=== PATIENT | female | born 1950 | race African-American/Black ===

== ENCOUNTER 2018-09-27 01:09 | Inpatient (IN) | payer MEDICARE, MEDICAID ==
[~2018-09-27] VITALS: Ht 160 cm; Wt 47.6 kg
[~2018-09-27 01:09] MED LIST: GABA600T PO
[2018-09-27] MEDS ORDERED: SODIUM CHLORIDE 0.9% 1,000 ML IV ONE (01:50)
[2018-09-27] MEDS ORDERED: HYDROCODONE/ACETAMINOPHEN 5/325MG TABLET PO STA (01:50)
[2018-09-27 03:01] LABS: BASOPHILS % 0.7 % (0.0-2.0); EOSINOPHILS % 1.5 % (0.0-5.0); HEMATOCRIT. 33.3 % (36.0-48.0); HEMOGLOBIN. 10.7 g/dL (12.0-16.0); MEAN CORPUSCULAR HEMOGLOBIN 26.8 pg (28.0-32.0); MEAN CORPUSCULAR VOLUME 83.1 fL (81.0-99.0); MEAN PLATELET VOLUME 7.8 fl (7.4-10.4); MONOCYTES % 6.6 % (2.0-8.0); NEUTROPHILS % 73.2 % (40.0-76.0); PLATELET 235 x1000/uL (130-400); RED BLOOD CELL COUNT 4.01 mill/uL (4.2-5.4); RED CELL DISTRIBUTION WIDTH 19.2 % (11.6-14.6)
[2018-09-27 03:02] LABS: CLARITY URINE CLOUDY (CLEAR); COLOR URINE YELLOW (YELLOW); KETONES URINE NEGATIVE (NEGATIVE); LEUKOCYTE ESTERASE URINE NEGATIVE (NEGATIVE); NITRITE URINE NEGATIVE (NEGATIVE); OCCULT BLOOD URINE NEGATIVE (NEGATIVE); PROTEIN URINE NEGATIVE (NEGATIVE); SPECIFIC GRAVITY URINE 1.022 (1.005-1.030)
[2018-09-27 03:04] LABS: CHLORIDE 105 mEq/L (98-107)
[2018-09-27 03:13] LABS: ETHANOL BLOOD < 10 mg/dL
[2018-09-27 03:16] LABS: *AMPHETAMINES SCREEN URINE NEGATIVE (NEGATIVE); *BARBITURATES SCREEN URINE NEGATIVE (NEGATIVE); *BENZODIAZEPINES SCREEN URINE NEGATIVE (NEGATIVE); *COCAINE SCREEN URINE PRESUMTIVE POSITIVE (NEGATIVE); METHADONE URINE SCREEN NEGATIVE (NEGATIVE)
[2018-09-27 03:17] LABS: CANNABINOID URINE SCREEN NEGATIVE (NEGATIVE); OPIATES URINE SCREEN NEGATIVE (NEGATIVE); PHENCYCLIDINE URINE SCREEN NEGATIVE (NEGATIVE)
[2018-09-27] MEDS ORDERED: MORPHINE SULFATE 2 MG/ML CPJ (NOT FOR IM USE) IV ONE (05:00)
[2018-09-27] MEDS ORDERED: CLONIDINE 0.1MG TABLET PO PRN (08:45)
[2018-09-27] MEDS ORDERED: IPRATROPIUM/ALBUTEROL 0.5-3(2.5)MG/3ML NEB INH PRN (08:45)
[2018-09-27] MEDS ORDERED: NITROGLYCERIN 0.4MG TABLET SL SL PRN (08:45)
[2018-09-27] MEDS ORDERED: ACETAMINOPHEN 325MG TABLET PO PRN (08:45)
[2018-09-27] MEDS ORDERED: GUAIFENESIN 200MG/10ML SUGAR FREE UDC PO PRN (08:45)
[2018-09-27] MEDS ORDERED: LORAZEPAM 0.5MG TABLET PO PRN (08:45)
[2018-09-27] MEDS ORDERED: KETOROLAC 15MG/ML VIAL IV PRN (08:45)
[2018-09-27] MEDS ORDERED: NA PHOS,M-B/NA PHOS,DI-BA ENEMA 118ML PR PRN (08:45)
[2018-09-27] MEDS ORDERED: MAGNESIUM/ALUMINUM HYDROXIDE/SIMETHICONE 30ML UDC PO PRN (08:45)
[2018-09-27] MEDS ORDERED: ONDANSETRON HCL 4MG/2ML INJ IV PRN (08:45)
[2018-09-27] MEDS: ASPIRIN 325MG EC TABLET PO SCH (10:55)
[2018-09-27] MEDS: AMLODIPINE 10MG TABLET PO SCH (10:55)
[2018-09-27] MEDS: LISINOPRIL 20MG TABLET PO SCH ×2 (10:56→22:03)
[2018-09-27 13:00] VITALS: BP 136/89
[2018-09-27] MEDS ORDERED: GABA-290 PO (13:31)
[2018-09-27] MEDS ORDERED: HYDR-4009 MT (13:32)
[2018-09-27] MEDS: TRAMADOL 50MG TABLET PO PRN ×2 (15:09→22:04)
[2018-09-27] MEDS: DOCUSATE SODIUM 100MG CAPSULE PO PRN (15:09)
[2018-09-27] MEDS: ENOXAPARIN 30MG/0.3ML SYR SUBCUT SCH (15:09)
[2018-09-27] MEDS: FAMOTIDINE 20MG TABLET PO SCH (15:10)
[2018-09-27 16:00] VITALS: BP 104/63
[2018-09-27 20:00] VITALS: BP 119/58
[2018-09-27 20:58] LABS: CREATINE KINASE MB FRACTION 1.6 ng/mL (0.5-3.6)
[2018-09-27] MEDS ORDERED: ZOLPIDEM TARTRATE 5MG TABLET PO PRN (21:00)
[2018-09-27] MEDS: GABAPENTIN 300MG CAPSULE PO SCH (22:03)
[2018-09-28] VITALS: BP 122/75
[2018-09-28 03:21] LABS: CREATINE KINASE MB FRACTION 1.4 ng/mL (0.5-3.6)
[2018-09-28 04:00] VITALS: BP 125/76
[2018-09-28 08:15] VITALS: BP 143/74
[2018-09-28] MEDS: LISINOPRIL 20MG TABLET PO SCH ×2 (09:00→21:46)
[2018-09-28] MEDS: AMLODIPINE 10MG TABLET PO SCH (09:00)
[2018-09-28] MEDS: ASPIRIN 325MG EC TABLET PO SCH (09:59)
[2018-09-28] MEDS: GABAPENTIN 300MG CAPSULE PO SCH ×2 (10:00→18:23)
[2018-09-28] MEDS: FAMOTIDINE 20MG TABLET PO SCH (10:07)
[2018-09-28] MEDS: TRAMADOL 50MG TABLET PO PRN (10:08)
[2018-09-28 12:10] VITALS: BP 136/70
[2018-09-28 16:15] VITALS: BP 112/60
[2018-09-28] MEDS: ENOXAPARIN 30MG/0.3ML SYR SUBCUT SCH (18:23)
[2018-09-28 20:00] VITALS: BP 112/65
[2018-09-29] VITALS: BP 115/68
[2018-09-29 04:00] VITALS: BP 118/63
[2018-09-29 08:00] VITALS: BP 140/73
[2018-09-29] MEDS: ASPIRIN 325MG EC TABLET PO SCH (10:27)
[2018-09-29] MEDS: FAMOTIDINE 20MG TABLET PO SCH (10:27)
[2018-09-29] MEDS: AMLODIPINE 10MG TABLET PO SCH (10:27)
[2018-09-29] MEDS: DOCUSATE SODIUM 100MG CAPSULE PO PRN (10:28)
[2018-09-29] MEDS: GABAPENTIN 300MG CAPSULE PO SCH ×2 (10:42→17:50)
[2018-09-29] MEDS: LISINOPRIL 20MG TABLET PO SCH ×2 (10:43→21:20)
[2018-09-29 12:00] VITALS: BP 123/58
[2018-09-29] MEDS: ENOXAPARIN 30MG/0.3ML SYR SUBCUT SCH (15:12)
[2018-09-29 16:00] VITALS: BP 116/54
[2018-09-29 20:00] VITALS: BP 123/63
[2018-09-29] MEDS: TRAMADOL 50MG TABLET PO PRN (21:24)
[2018-09-29 22:43] LABS: FOLIC ACID (FOLATE) SERUM 12.3 ng/mL (>5.38)
[2018-09-30] MEDS: TRAMADOL 50MG TABLET PO PRN ×2 (04:34→20:44)
[2018-09-30 08:00] VITALS: BP 156/68
[2018-09-30] MEDS: FAMOTIDINE 20MG TABLET PO SCH (09:00)
[2018-09-30] MEDS: AMLODIPINE 10MG TABLET PO SCH (09:00)
[2018-09-30] MEDS: LISINOPRIL 20MG TABLET PO SCH ×2 (09:00→20:44)
[2018-09-30] MEDS: ASPIRIN 325MG EC TABLET PO SCH (09:00)
[2018-09-30] MEDS: GABAPENTIN 300MG CAPSULE PO SCH ×2 (09:10→19:03)
[2018-09-30 12:00] VITALS: BP 153/61
[2018-09-30] MEDS: ENOXAPARIN 30MG/0.3ML SYR SUBCUT SCH (14:55)
[2018-09-30] MEDS: ACETAMINOPHEN WITH CODEINE 300/30MG TABLET PO PRN ×2 (15:20→23:39)
[2018-09-30 16:00] VITALS: BP 148/71
[2018-09-30 20:00] VITALS: BP 132/63
[2018-10-01] VITALS (7 sets, daily range): BP systolic 120–158; BP diastolic 53–80
[2018-10-01] MEDS: ACETAMINOPHEN WITH CODEINE 300/30MG TABLET PO PRN ×2 (08:11→19:17)
[2018-10-01] MEDS: GABAPENTIN 300MG CAPSULE PO SCH ×2 (08:11→19:16)
[2018-10-01] MEDS: LISINOPRIL 20MG TABLET PO SCH (08:13)
[2018-10-01] MEDS: ASPIRIN 325MG EC TABLET PO SCH (08:13)
[2018-10-01] MEDS: FAMOTIDINE 20MG TABLET PO SCH (08:13)
[2018-10-01] MEDS: AMLODIPINE 10MG TABLET PO SCH (08:13)
[2018-10-01] MEDS: ENOXAPARIN 30MG/0.3ML SYR SUBCUT SCH (15:00)
== END 2018-10-01 20:00 | DRG 312 ==
LOC: ER 01:09 → 7WST 05:34 → EDBEDREQ 05:37 → EDBEDREQTM 05:37 → SUPCPDRO 08:43 → ENRESERV 12:20
PROVIDERS: ADMIT Internal Medicine; ATTEND Internal Medicine
DX: R55 Syncope and collapse (principal); E44.0 Moderate protein-calorie malnutrition; Z68.1 Body mass index [BMI] 19.9 or less, adult; K29.70 Gastritis, unspecified, without bleeding; D63.8 Anemia in other chronic diseases classified elsewhere; E11.9 Type 2 diabetes mellitus without complications; F14.10 Cocaine abuse, uncomplicated; F17.210 Nicotine dependence, cigarettes, uncomplicated; I10 Essential (primary) hypertension; M54.9 Dorsalgia, unspecified; M54.2 Cervicalgia; Z79.1 Long term (current) use of non-steroidal anti-inflammatories (NSAID); Z79.899 Other long term (current) drug therapy
CPT/HCPCS: 36415; 71045; 72131; 80061; 80305; 82550; 82553; 82607; 82746; 83036; 83605; 83880; 84484; 93005; 93306; 93970; 96361; 96374; 99285; G0482; J1650; J1885; J2270; J7030

== ENCOUNTER 2019-03-10 15:13 | Inpatient (IN) | payer MEDICARE, MEDICAID ==
[~2019-03-10] VITALS: Ht 160 cm; Wt 56.7 kg
[~2019-03-10 15:13] MED LIST changes: +GABA-290 PO; -GABA600T PO; +HYDR-4009 MT
[2019-03-10] MEDS ORDERED: MORPHINE SULFATE 4 MG/ML CPJ (NOT FOR IM USE) IV STA (16:19)
[2019-03-10] MEDS ORDERED: ONDANSETRON HCL 4MG/2ML INJ IV STA (16:19)
[2019-03-10] MEDS ORDERED: SODIUM CHLORIDE 0.9% 1,000 ML IV ONE (16:19)
[2019-03-10] MEDS ORDERED: HYDROCODONE/ACETAMINOPHEN 5/325MG TABLET PO ONE (17:15)
[2019-03-10 17:19] LABS: BASOPHILS % 0.2 % (0.0-2.0); EOSINOPHILS % 0.3 % (0.0-5.0); HEMATOCRIT. 40.6 % (36.0-48.0); HEMOGLOBIN. 13.3 g/dL (12.0-16.0); LYMPHOCYTES % 14.4 % (20.0-50.0); MEAN CORPUSCULAR HEMOGLOBIN 30.2 pg (28.0-32.0); MEAN CORPUSCULAR VOLUME 92.8 fL (81.0-99.0); MEAN PLATELET VOLUME 7.6 fl (7.4-10.4); MONOCYTES % 9.7 % (2.0-8.0); NEUTROPHILS % 75.4 % (40.0-76.0); PLATELET 380 x1000/uL (130-400); RED BLOOD CELL COUNT 4.38 mill/uL (4.2-5.4); RED CELL DISTRIBUTION WIDTH 15.8 % (11.6-14.6)
[2019-03-10 17:21] LABS: CHLORIDE 98 mEq/L (98-107)
[2019-03-10 17:25] LABS: ETHANOL BLOOD < 10 mg/dL
[2019-03-10] MEDS ORDERED: POTASSIUM CHLORIDE 20MEQ TABLET SR PO ONE (17:30)
[2019-03-10] MEDS ORDERED: LORAZEPAM 0.5MG TABLET PO PRN (18:00)
[2019-03-10] MEDS ORDERED: ACETAMINOPHEN 325MG TABLET PO PRN (18:00)
[2019-03-10] MEDS ORDERED: TRAMADOL 50MG TABLET PO PRN (18:00)
[2019-03-10] MEDS ORDERED: LEVOFLOXACIN 500MG PREMIX 100 ML IV SCH (18:00)
[2019-03-10] MEDS ORDERED: NA PHOS,M-B/NA PHOS,DI-BA ENEMA 118ML PR PRN (18:00)
[2019-03-10] MEDS ORDERED: DOCUSATE SODIUM 100MG CAPSULE PO PRN (18:00)
[2019-03-10] MEDS ORDERED: NITROGLYCERIN 0.4MG TABLET SL SL PRN (18:00)
[2019-03-10] MEDS ORDERED: CLONIDINE 0.1MG TABLET PO PRN (18:00)
[2019-03-10] MEDS ORDERED: ONDANSETRON HCL 4MG/2ML INJ IV PRN (18:00)
[2019-03-10] MEDS ORDERED: GUAIFENESIN 200MG/10ML SUGAR FREE UDC PO PRN (18:00)
[2019-03-10] MEDS ORDERED: ZOLPIDEM TARTRATE 5MG TABLET PO PRN (18:00)
[2019-03-10] MEDS ORDERED: MAGNESIUM/ALUMINUM HYDROXIDE/SIMETHICONE 30ML UDC PO PRN (18:00)
[2019-03-10] MEDS ORDERED: IPRATROPIUM/ALBUTEROL 0.5-3(2.5)MG/3ML NEB INH PRN (18:00)
[2019-03-10 22:00] VITALS: BP 141/78
[2019-03-11] VITALS (7 sets, daily range): BP systolic 108–157; BP diastolic 45–76
[2019-03-11] MEDS ORDERED: POTASSIUM CHLORIDE 20MEQ TABLET SR PO NR
[2019-03-11] MEDS ORDERED: LEVOFLOXACIN 500MG PREMIX 100 ML IV NR
[2019-03-11] MEDS: DILTIAZEM HCL 30MG TABLET PO SCH ×4 (00:32→17:13)
[2019-03-11] MEDS: KETOROLAC 15MG/ML VIAL IV PRN ×2 (00:40→13:27)
[2019-03-11] MEDS: GABAPENTIN 300MG CAPSULE PO SCH ×3 (06:39→21:04)
[2019-03-11] MEDS: ENOXAPARIN 40MG/0.4ML SYR SUBCUT SCH (08:10)
[2019-03-11] MEDS: FAMOTIDINE 20MG TABLET PO SCH (08:10)
[2019-03-11] MEDS: GUAIFENESIN/DM 600MG/30MG ER TAB 12HR PO SCH ×2 (08:10→20:58)
[2019-03-11] MEDS ORDERED: DEXTROSE 50% WATER 50ML SYRINGE IV PRN (13:00)
[2019-03-11] MEDS: BLOOD SUGAR DIAGNOSTIC STRIP TEST SCH ×2 (16:53→20:57)
[2019-03-11 17:01] LABS: CLARITY URINE CLEAR (CLEAR); COLOR URINE YELLOW (YELLOW); KETONES URINE TRACE (NEGATIVE); LEUKOCYTE ESTERASE URINE NEGATIVE (NEGATIVE); NITRITE URINE NEGATIVE (NEGATIVE); OCCULT BLOOD URINE NEGATIVE (NEGATIVE); PROTEIN URINE NEGATIVE (NEGATIVE); SPECIFIC GRAVITY URINE 1.024 (1.005-1.030)
[2019-03-11] MEDS: INSULIN LISPRO 100 UNITS/ML SUBCUT SCH ×2 (17:07→21:00)
[2019-03-11] MEDS: LEVOFLOXACIN 250MG PREMIX 50 ML IV SCH (23:06)
[2019-03-12] VITALS: BP 122/62
[2019-03-12] MEDS: IPRATROPIUM/ALBUTEROL 0.5-3(2.5)MG/3ML NEB HHN SCH ×6 (00:17→20:00)
[2019-03-12] MEDS: DILTIAZEM HCL 30MG TABLET PO SCH ×5 (00:29→23:55)
[2019-03-12 04:00] VITALS: BP 118/59
[2019-03-12] MEDS: KETOROLAC 15MG/ML VIAL IV PRN ×3 (05:42→20:04)
[2019-03-12] MEDS: GABAPENTIN 300MG CAPSULE PO SCH ×3 (06:08→23:54)
[2019-03-12] MEDS: BLOOD SUGAR DIAGNOSTIC STRIP TEST SCH ×4 (06:12→20:28)
[2019-03-12] MEDS: INSULIN LISPRO 100 UNITS/ML SUBCUT SCH ×4 (06:20→20:29)
[2019-03-12 08:00] VITALS: BP 128/66
[2019-03-12] MEDS: ENOXAPARIN 40MG/0.4ML SYR SUBCUT SCH (10:15)
[2019-03-12] MEDS: FAMOTIDINE 20MG TABLET PO SCH (10:15)
[2019-03-12] MEDS: GUAIFENESIN/DM 600MG/30MG ER TAB 12HR PO SCH ×2 (10:16→20:03)
[2019-03-12 11:50] VITALS: BP 135/61
[2019-03-12 12:49] LABS: *AMPHETAMINES SCREEN URINE PRESUMTIVE POSITIVE (NEGATIVE); *BARBITURATES SCREEN URINE NEGATIVE (NEGATIVE)
[2019-03-12 12:50] LABS: *BENZODIAZEPINES SCREEN URINE NEGATIVE (NEGATIVE); *COCAINE SCREEN URINE PRESUMTIVE POSITIVE (NEGATIVE); CANNABINOID URINE SCREEN NEGATIVE (NEGATIVE); METHADONE URINE SCREEN NEGATIVE (NEGATIVE); OPIATES URINE SCREEN PRESUMTIVE POSITIVE (NEGATIVE); PHENCYCLIDINE URINE SCREEN NEGATIVE (NEGATIVE)
[2019-03-12 16:00] VITALS: BP 116/67
[2019-03-12 20:00] VITALS: BP 148/76
[2019-03-12] MEDS: LEVOFLOXACIN 250MG PREMIX 50 ML IV SCH (23:56)
[2019-03-13] VITALS: BP 130/61
[2019-03-13 04:00] VITALS: BP 137/50
[2019-03-13] MEDS: IPRATROPIUM/ALBUTEROL 0.5-3(2.5)MG/3ML NEB HHN SCH ×3 (04:56→12:15)
[2019-03-13] MEDS: BLOOD SUGAR DIAGNOSTIC STRIP TEST SCH ×3 (06:35→17:02)
[2019-03-13] MEDS: INSULIN LISPRO 100 UNITS/ML SUBCUT SCH ×3 (06:39→17:02)
[2019-03-13] MEDS: GABAPENTIN 300MG CAPSULE PO SCH ×2 (06:40→15:23)
[2019-03-13] MEDS: DILTIAZEM HCL 30MG TABLET PO SCH ×3 (06:40→17:02)
[2019-03-13 08:00] VITALS: BP 145/68
[2019-03-13] MEDS: KETOROLAC 15MG/ML VIAL IV PRN (10:38)
[2019-03-13] MEDS: FAMOTIDINE 20MG TABLET PO SCH (10:39)
[2019-03-13] MEDS: ENOXAPARIN 40MG/0.4ML SYR SUBCUT SCH (10:39)
[2019-03-13] MEDS: GUAIFENESIN/DM 600MG/30MG ER TAB 12HR PO SCH (10:49)
[2019-03-13 11:55] VITALS: BP 145/68
[2019-03-13 16:00] VITALS: BP 137/70
[2019-03-13 18:35] VITALS: BP 137/70
== END 2019-03-13 18:50 | DRG 191 ==
LOC: ER 15:13 → 6EST 17:37 → EDBEDREQSVC 17:40 → EDBEDREQ 17:40 → ENRESERV 20:53
PROVIDERS: ADMIT Internal Medicine; ATTEND Internal Medicine
DX: J44.1 Chronic obstructive pulmonary disease with (acute) exacerbation (principal); E44.1 Mild protein-calorie malnutrition; R10.9 Unspecified abdominal pain; E87.6 Hypokalemia; F17.210 Nicotine dependence, cigarettes, uncomplicated; E11.9 Type 2 diabetes mellitus without complications; I10 Essential (primary) hypertension; E87.5 Hyperkalemia; F14.10 Cocaine abuse, uncomplicated; G89.4 Chronic pain syndrome; Z91.14 Patient's other noncompliance with medication regimen; Z91.81 History of falling; Z79.1 Long term (current) use of non-steroidal anti-inflammatories (NSAID); Z79.899 Other long term (current) drug therapy; Z71.6 Tobacco abuse counseling; Z71.51 Drug abuse counseling and surveillance of drug abuser; Z68.22 Body mass index [BMI] 22.0-22.9, adult; Z76.5 Malingerer [conscious simulation]
CPT/HCPCS: 36415; 71045; 80305; 80320; 82962; 83036; 83605; 84484; 93005; 96361; 96374; 99285; C1893; J1650; J1885; J1956; J2405; J7030; J7050; J7620; G0480